=== PATIENT | female | born 1985 | race Two or more races ===

== ENCOUNTER → 2018-02-09 10:26 | Outpatient (CLI) | payer OTHER, SELFPAY ==
--- NOTE | 2018-02-09 10:33 | MM_ITS ---
MM Dig screening mamm BI w/CAD CAD Screening COMPARISON: None, this is baseline INDICATION: There is no personal or family history of breast cancer. Patient complains of lactating from each breast 3 years after breast feeding TECHNIQUE: Standard CC and MLO images were obtained. R2 CAD reviewed. FINDINGS: Moderate scattered fibroglandular densities are seen throughout both breasts and the findings are bilateral and symmetrical. There is no suspicious lesion and there are no suspicious microcalcifications. In particular there do not appear to be dilated ducts in the retroareolar region in either breast. If persists possibly follow-up ultrasound in each breast should be considered. IMPRESSION: Fibrofatty parenchyma with no suspicious lesion seen BI-RADS Category: 1 Negative RECOMMENDED FOLLOW-UP: 1YR - 1 YEAR FOLLOW-UP after the age of 40 (A letter has been sent to the patient regarding results of the study.)
== END ==
PROVIDERS: PCP Obstetrics & Gynecology; Visit Provider Obstetrics & Gynecology
DX: Z12.31 Encounter for screening mammogram for malignant neoplasm of breast (principal)
CPT/HCPCS: 77067

== ENCOUNTER → 2018-03-10 14:48 | Outpatient (CLI) | payer OTHER, SELFPAY ==
[2018-03-10 16:40] LABS: Free T4 (Free Thyroxine) 0.93 ng/dl (0.76-1.46); Thyroid Stimulating Hormone 0.58 uIU/ml (0.358-3.740)
[2018-03-12 10:18] LABS: Prolactin 14.3 ng/mL (4.8-23.3)
== END ==
DX: N64.3 Galactorrhea not associated with childbirth (principal)
CPT/HCPCS: 36415; 84146; 84439; 84443

== ENCOUNTER → 2019-03-21 08:33 | Outpatient (CLI) | payer OTHER, SELFPAY ==
[2019-03-22 14:32] LABS: Prolactin 10.3 ng/mL (4.8-23.3); Vitamin D 25 Hydroxy 48.2 ng/mL (30.0-100.0)
== END ==
PROVIDERS: Visit Provider Obstetrics & Gynecology
DX: E22.1 Hyperprolactinemia (principal); E55.9 Vitamin D deficiency, unspecified
CPT/HCPCS: 36415; 82652; 84146

== ENCOUNTER → 2022-02-04 13:09 | Outpatient (CLI) | payer OTHER, SELFPAY | PROVIDERS: Visit Provider Internal Medicine | DX: Z20.822 Contact with and (suspected) exposure to COVID-19 (principal) | CPT/HCPCS: C9803; U0003; U0005 ==

== ENCOUNTER → 2022-02-12 08:16 | Outpatient (CLI) | payer OTHER, SELFPAY ==
[2022-02-12 08:19] LABS: Coronavirus 19, PCR Not Detected (NotDetected); Influenza A, PCR Not Detected (NotDetected); Influenza B, PCR Not Detected (NotDetected)
== END ==
PROVIDERS: Visit Provider Internal Medicine
DX: Z11.52 Encounter for screening for COVID-19 (principal)
CPT/HCPCS: C9803; U0003; U0005

== ENCOUNTER → 2022-05-19 09:51 | Outpatient (CLI) | payer OTHER, SELFPAY ==
[2022-05-19 09:56] LABS: Microscopic, Urine URINE MICROSCOPIC (MICROSCOPIC)
[2022-05-19 10:11] LABS: Appearance,Urine CLEAR (Clear); Basophils # 0.1 K/mm3 (0-0.2); Basophils % 1.6 % (0.1-2.0); Bilirubin,Urine Negative (Negative); Blood, Urine 1+ (Negative); Color,Urine YELLOW (Yellow); Eosinophils # 0.2 K/mm3 (0.0-0.4); Glucose,Urine (UA) Negative (Negative); Hematocrit 41.8 % (37.0-47.0); Hemoglobin 13.4 g/dL (12.2-16.2); Ketones,Urine Negative (Negative); Leukocyte Esterase,Urine Negative (Negative); Lymphocytes # 1.6 K/mm3 (0.7-4.5); Lymphocytes % 20.9 % (10-50); Mean Corpuscular Hemoglobin 28.6 pg (27.0-31.2); Mean Corpuscular Volume 89.2 fl (81-99); Mean Platelet Volume 11.8 fl (7.4-10.4); Monocytes # 0.3 K/mm3 (0.1-1.0); Monocytes % 3.9 % (1.7-9.3); Neutrophils # 5.6 K/mm3 (1.8-7.8); Neutrophils % 71.6 % (37.0-80.0); Nitrate,Urine Negative (Negative); PH,Urine 5.5 (5.0-8.5); Platelet Count 187 K/mm3 (142-424); Protein,Urine Negative (Negative); Red Blood Count 4.68 M/mm3 (4.20-5.40); Red Cell Distribution Width 14.3 % (11.5-17.5); Specific Gravity, Urine >= 1.030 (1.005-1.030); Urobilinogen,Urine 0.2 EU/dl (0.2); White Blood Count 7.8 K/mm3 (4.8-10.8)
[2022-05-19 10:28] LABS: WBC,Urine Occasional #/hpf (0-3)
[2022-05-19 10:29] LABS: Bacteria,Urine 2+ /lpf
[2022-05-19 10:35] LABS: Chloride 108 mmol/L (98-107); Sodium 138 mmol/L (136-145)
[2022-05-19 10:38] LABS: Alanine Aminotransferase 28 U/L (12-78); Aspartate Amino Transferase 29 U/L (14-36); Blood Urea Nitrogen 11 mg/dl (7-17); Estimated Glomerular Filt Rate 112 ml/min (>60); GFR (African American) 136 ML/MIN (>60)
[2022-05-19 10:39] LABS: Albumin/Globulin Ratio 1.6 (1.1-1.8); Alkaline Phosphatase 80 U/L (38-126); Bilirubin,Total 0.3 mg/dl (0.2-1.3); Calcium 9.2 mg/dl (8.4-10.2); Carbon Dioxide 22 mmol/L (22.0-30.0); Globulin 2.5 g/dL (1.3-3.2); Glucose 147 mg/dl (74-100); Total Protein,Serum 6.5 g/dl (6.3-8.2)
== END ==
PROVIDERS: Visit Provider Obstetrics & Gynecology
DX: Z01.818 Encounter for other preprocedural examination (principal)
CPT/HCPCS: 36415; 80053; 81001; 85025; 87086

== ENCOUNTER → 2023-07-30 08:28 | Outpatient (CLI) | payer OTHER, SELFPAY ==
[2023-07-30 09:03] LABS: Basophils % 0.5 % (0.1-2.0); Eosinophils # 0.2 K/mm3 (0.0-0.4); Hematocrit 42.9 % (37.0-47.0); Hemoglobin 13.7 g/dL (12.2-16.2); Lymphocytes # 1.8 K/mm3 (0.7-4.5); Mean Corpuscular HGB Conc 31.9 g/dL (31.8-35.4); Mean Corpuscular Hemoglobin 27.6 pg (27.0-31.2); Mean Corpuscular Volume 86.5 fl (81-99); Mean Platelet Volume 12.2 fl (7.4-10.4); Monocytes # 0.3 K/mm3 (0.1-1.0); Monocytes % 3.8 % (1.7-9.3); Neutrophils # 6.6 K/mm3 (1.8-7.8); Neutrophils % 73.7 % (37.0-80.0); Platelet Count 218 K/mm3 (142-424); Red Blood Count 4.96 M/mm3 (4.20-5.40); Red Cell Distribution Width 13.8 % (11.5-17.5); White Blood Count 8.9 K/mm3 (4.8-10.8)
[2023-07-30 09:21] LABS: Alanine Aminotransferase 21 U/L (12-78); Alkaline Phosphatase 76 U/L (38-126); Anion Gap 12.1 mEq/L (5-15); Aspartate Amino Transferase 20 U/L (14-36); Bilirubin,Indirect 0.2 mg/dL (0.0-0.9); Bilirubin,Total 0.2 mg/dl (0.2-1.3); Bilirubin,Unconjugated 0.2 mg/dL (0.0-1.1); Blood Urea Nitrogen 9 mg/dl (7-17); Calcium 9.2 mg/dl (8.4-10.2); Carbon Dioxide 24 mmol/L (22.0-30.0); Chloride 108 mmol/L (98-107); Chol/HDL Ratio 2.9 (1-3.5); Cholesterol 118 mg/dl (140-200); Estimated Glomerular Filt Rate 80 ml/min (>60); GFR (African American) 97 ML/MIN (>60); Glucose 89 mg/dl (74-100); HDL Cholesterol 41 mg/dl (40-60); Potassium 4.1 mmoL/L (3.5-5.1); Sodium 140 mmol/L (136-145); Total Protein,Serum 6.5 g/dl (6.3-8.2); Triglycerides 46 mg/dl (30-150); VLDL Cholesterol 9 mg/dL (0-40)
[2023-07-30 09:30] LABS: Hemoglobin A1C 5.6 % (4.0-6.0)
[2023-07-30 09:32] LABS: Direct LDL Cholesterol 70.19 mg/dL (100-129)
[2023-07-30 09:40] LABS: Free T4 (Free Thyroxine) 0.97 ng/dl (0.78-2.19)
[2023-07-30 09:55] LABS: Thyroid Stimulating Hormone 0.52 uIU/mL (0.465-4.68)
== END ==
PROVIDERS: PCP Internal Medicine; Visit Provider Internal Medicine
DX: R53.83 Other fatigue (principal); R00.2 Palpitations; R00.0 Tachycardia, unspecified; I10 Essential (primary) hypertension; L83 Acanthosis nigricans
CPT/HCPCS: 36415; 80048; 80061; 80076; 83036; 83735; 84439; 84443; 85025

== ENCOUNTER 2024-08-08 07:55 | Day surgery (SDC) | payer OTHER, SELFPAY ==
[2024-08-03 09:42] VITALS: BMI 29.7
[2024-08-08 08:30] VITALS: BP 114/58; PULSE 77; RESP 18; TEMP 36.4; O2SAT 97
[2024-08-08] MEDS: LACTATED RINGERS 1000ML 1,000 ML 25 ML IV (08:37)
--- NOTE | 2024-08-08 08:43 | EXP.ANES.CKL ---
[facility] Disclaimer: The information contained in this section may have been updated after the patient was seen, as this information can be updated by other users. Medical History Sinus tachycardia Surgical History History of laparoscopy History of tubal ligation History of section Family History Mother Thyroid cancer Colon cancer Hyperlipidemia Hypertension Father Hyperlipidemia Father Hypertension Social History Smoking Status: Never smoker alcohol intake: never substance use type: denies use current occupational status: employed Travel in the last 8 weeks: None [facility] Anesthesia Checklist Patient Identification Patient Identification: Verbal (Name & ) Structural Data Admitted From: Home Planned Operative Procedure/s: colonoscopy NPO Status Verified Time NPO: 00:00 Airway Assessment Mallampati Score:: Class II C-Spine Mobility Assessed: Yes TMJ Mobility Assessed: Yes Neurological Assessment Level of Consciousness: Awake, Alert and Appropriate Anesthesia Plan Anesthesia Risk discussed: Yes Anesthesia Plan: Verified ASA Class: II Anesthesia Type: MAC
[2024-08-08 08:48] LABS: Albumin Level 4.6 g/dl (3.5-5.0); Chloride 104 mmol/L (98-107); Potassium 3.6 mmoL/L (3.5-5.1); Sodium 138 mmol/L (136-145)
[2024-08-08 08:50] LABS: Alanine Aminotransferase 27 U/L (12-78); Anion Gap 10.6 mEq/L (5-15); Aspartate Amino Transferase 30 U/L (14-36); Blood Urea Nitrogen 7 mg/dl (7-17); Carbon Dioxide 27 mmol/L (22.0-30.0); Creatinine Clearance Estimated 147 mL/min (50-200); Estimated Glomerular Filt Rate 93 ml/min (>60); GFR (African American) 113 ML/MIN (>60)
[2024-08-08 08:51] LABS: Albumin/Globulin Ratio 1.5 (1.1-1.8); Alkaline Phosphatase 84 U/L (38-126); Bilirubin,Total 0.7 mg/dl (0.2-1.3); Calcium 9.5 mg/dl (8.4-10.2); Chol/HDL Ratio 3.5 (1-3.5); Cholesterol 147 mg/dl (140-200); Glucose 96 mg/dl (74-100); HDL Cholesterol 42 mg/dl (40-60); Total Protein,Serum 7.6 g/dl (6.3-8.2); Triglycerides 109 mg/dl (30-150); VLDL Cholesterol 22 mg/dL (0-40)
[2024-08-08 08:53] LABS: Basophils % 0.4 % (0.1-2.0); Eosinophils # 0.2 K/mm3 (0.0-0.4); Eosinophils % 2.9 % (0.1-12.0); Hematocrit 43.5 % (37.0-47.0); Hemoglobin 14.1 g/dL (12.2-16.2); Lymphocytes # 1.7 K/mm3 (0.7-4.5); Lymphocytes % 22.7 % (10-50); Mean Corpuscular HGB Conc 32.3 g/dL (31.8-35.4); Mean Corpuscular Volume 89.8 fl (81-99); Mean Platelet Volume 10.8 fl (7.4-10.4); Monocytes # 0.4 K/mm3 (0.1-1.0); Monocytes % 4.7 % (1.7-9.3); Neutrophils # 5.2 K/mm3 (1.8-7.8); Neutrophils % 69.3 % (37.0-80.0); Platelet Count 209 K/mm3 (142-424); Red Blood Count 4.84 M/mm3 (4.20-5.40); Red Cell Distribution Width 13.5 % (11.5-17.5); White Blood Count 7.6 K/mm3 (4.8-10.8)
[2024-08-08 09:01] LABS: HCG Qualitative, Serum Negative (Negative)
[2024-08-08 09:02] LABS: Direct LDL Cholesterol 70.92 mg/dL (100-129)
--- NOTE | 2024-08-08 09:10 | EXP.HP ---
History of Present Illness *Admission Date: 08/08/24 *Reason for visit:: Screening *History of present illness: Mrs. Box is a 38-year-old female who is here for surveillance/high risk [place] colonoscopy. Her mother had colon cancer at the age of 50 with metastatic disease and her maternal uncle had colon cancer in his mid 50s. The patient did have a colonoscopy 7 years ago and had polyps.. The examination is deemed medically necessary for colonoscopy. The patient has been seen, interviewed and examined prior to the procedure by both myself and the anesthesia provider. [facility] Disclaimer: The information contained in this section may have been updated after the patient was seen, as this information can be updated by other users. Medical History (Updated 08/08/24 @ 09:16 by Jasper Gibson II, MD) Sinus tachycardia Surgical History History of laparoscopy History of tubal ligation History of section Family History Mother Thyroid cancer Colon cancer Hyperlipidemia Hypertension Father Hyperlipidemia Father Hypertension Social History Smoking Status: Never smoker alcohol intake: never substance use type: denies use current occupational status: employed Travel in the last 8 weeks: None Review of Systems Review of Systems Review of systems (narrative): Negative *Cardiovascular Comments: Negative *Gastrointestinal Comments: Negative *Genitourinary Comments: Negative *Musculoskeletal Comments: Negative *Neurologic Comments: Negative Meds Home Medications and Allergies Home Medications ?Medication ?Instructions ?Recorded ?Confirmed ?Type bisoprolol fumarate 10 mg tablet 10 mg PO DAILY #90 tabs 09/22/23 08/08/24 Rx New Prescriptions to Start Prescriptions: Allergies Allergy/AdvReac Type Severity Reaction Status Date / Time hydromorphone [From DILAUDID] Allergy Unknown NA-NAUSEA Verified 08/08/24 08:28 morphine [MORPHINE] Allergy Unknown NA-NAUSEA/V Verified 08/08/24 08:28 OMITING Exam Data for Last 24 hours Vital signs and Labs for Last 24 Hours: Temp Pulse Resp BP Pulse Ox O2 Del Method 97.5 F L 77 18 114/58 L 97 Room Air 08/08/24 08:30 08/08/24 08:30 08/08/24 08:30 08/08/24 08:30 08/08/24 08:30 08/08/24 08:30 Laboratory Results - last 24 hr 08/08/24 08:30: WBC 7.6, RBC 4.84, Hgb 14.1, Hct 43.5, MCV 89.8, MCH 29.0, MCHC 32.3, RDW 13.5, Plt Count 209, MPV 10.8 H, Neut % (Auto) 69.3, Lymph % (Auto) 22.7, [place] % (Auto) 4.7, Eos % (Auto) 2.9, Baso % (Auto) 0.4, Neut # (Auto) 5.2, Lymph # (Auto) 1.7, [place] # (Auto) 0.4, Eos # (Auto) 0.2, Baso # (Auto) 0.0, Sodium 138, Potassium 3.6, Chloride 104, Carbon Dioxide 27, Anion Gap 10.6, BUN 7, Creatinine 0.70, Estimated Creat Clear 147, Estimated GFR 93, Est GFR ( Amer) 113, Glucose 96, Calcium 9.5, Total Bilirubin 0.7, AST 30, ALT 27, Alkaline Phosphatase 84, Total Protein 7.6, Albumin 4.6, Globulin 3.0, Albumin/Globulin Ratio 1.5, Triglycerides 109, Cholesterol 147, LDL Cholesterol Direct 70.92 L, VLDL Cholesterol 22, HDL Cholesterol 42, Cholesterol/HDL Ratio 3.5, Serum HCG, Qual Negative *Routine HEENT Exam Head: Present normocephalic Eye: Present EOMI and PERRL ENT: Present mucous membranes moist *Routine Neck Exam Neck: Present supple *Routine Respiratory Exam Respiratory: Present CTA bilaterally *Routine Cardiovascular Exam Cardiovascular: Present RRR *Routine Abdominal Exam Abdominal: Present soft and normoactive bowel sounds; Absent tenderness *Routine Rectal Exam Rectal:: deferred *Routine Genitalia Exam Genitalia:: deferred *Routine Extremities Exam Extremities: Absent cyanosis, clubbing or edema *Routine Skin Exam Skin: Present warm; Absent rash *Routine Neurological Exam Neurological: Present alert and oriented X3 Assessment and Plan *Assessment and plan (1) Personal history of colonic polyps: Status: Acute Category: Medical Code(s): Z86.010 - Personal history of colonic polyps (2) Family history of colon cancer: Status: Acute Category: Medical Code(s): Z80.0 - Family history of malignant neoplasm of digestive organs (3) Encounter for screening for colorectal cancer in high risk patient: Status: Acute Category: Medical Code(s): Z12.11 - Encounter for screening for malignant neoplasm of colon; Z12.12 - Encounter for screening for malignant neoplasm of rectum; Z91.89 - Other specified personal risk factors, not elsewhere classified Plan A/P: 1. Screening colonoscopy?strong family history is the preprocedural diagnosis. The patient will be anesthetized/sedated using MAC sedation. The patient has been seen and examined. Cardiac and lung assessment prior to the examination is stable. Proceed with planned colonoscopy
[2024-08-08 09:12] VITALS: O2SAT 97
[2024-08-08 09:24] LABS: Thyroid Stimulating Hormone 1.28 uIU/mL (0.465-4.68)
--- NOTE | 2024-08-08 09:33 | HMH.PROCNOTE ---
[facility] Procedure Note Date: 08/08/24 Time: 09:33 Procedure Note:: Colonoscopy Procedure Report: Colonoscopy Endoscopist: Jasper Gibson II, MD Referring physician: Zackary Pink M.D. Date of Procedure: August 08, 2024 Equipment: Olympus 190 variable stiffness pediatric colonoscope Sedation: MAC sedation Indication: Mrs. Box is a 38-year-old female who is here for high risk screening/surveillance colonoscopy due to strong family history. Her mother had metastatic colon cancer at the age of 50. Her maternal uncle also had metastatic colon cancer in his mid 50s. The patient did have a colonoscopy in 2017 or 2018 (Benigno Lambert MD) at which time a couple of benign polyps were removed. The patient reports no abdominal pain, weight loss, change in her bowel habits or rectal bleeding. Procedure: Prior to the procedure, a history and physical exam was performed, and patient's medications and allergies were reviewed. The risks, benefits and alternatives of the sedation and procedure were discussed with the patient. All questions were answered and informed consent was obtained. The patient was brought to the procedure room. Patient identification and proposed procedure were verified by the physician and the nurse. The patient was placed in a left lateral decubitus position and the scope was passed under direct vision. Throughout the procedure, the patient's blood pressure, pulse, and oxygen saturations were monitored continuously. The colonoscopy was accomplished without difficulty. The patient tolerated the procedure well. Findings: On digital rectal examination there was normal rectal tone. There were no external hemorrhoids. The colonoscope was introduced through the anal canal to the rectum and advanced to the cecum. The ileocecal valve and appendiceal orifice were identified. The scope was advanced a short distance into the ileum which appeared grossly normal. The scope was then withdrawn into the colon. The cecum, ascending, transverse, descending, sigmoid and rectum were grossly normal. There were no mucosal abnormalities identified. Upon retroflexion within the rectum there were grade 1-2 internal hemorrhoids.The preparation was excellent throughout with [place] Preparation Score of 9. The cecal time was 9 minutes. Impression: 1. Normal colonoscopy with intubation of the terminal ileum 2. Grade 1-2 internal hemorrhoids Plan: Based upon the patient's strong family history, I would recommend repeat surveillance colonoscopy again in 5 years. We begin screening colonoscopy 10 years younger than the youngest family member with colon cancer and continue surveillance every 5 years thereafter.
[2024-08-08 09:38] VITALS: BP 97/44; PULSE 77; RESP 16; TEMP 37.1; O2SAT 98
[2024-08-08 09:38] LABS: Hemoglobin A1C 5.4 % (4.0-6.0)
[2024-08-08 09:48] VITALS: BP 102/51; PULSE 76; RESP 16; O2SAT 96
[2024-08-08 09:58] VITALS: BP 128/69; PULSE 65; RESP 16; O2SAT 99
[2024-08-08 10:06] VITALS: BP 130/66; PULSE 66; RESP 16; O2SAT 99
== END 2024-08-08 10:08 | disposition home or self-care (01) ==
PROVIDERS: Nurse Practitioner Women's Health; Visit Provider Internal Medicine Gastroenterology
PROC: (CPT 45378; principal; 2024-08-08 09:30)
DX: Z12.11 Encounter for screening for malignant neoplasm of colon (principal); Z86.010 Personal history of colon polyps; Z80.0 Family history of malignant neoplasm of digestive organs; Z12.12 Encounter for screening for malignant neoplasm of rectum; Z91.89 Other specified personal risk factors, not elsewhere classified; K64.1 Second degree hemorrhoids
CPT/HCPCS: 45378; 80050; 80053; 80061; 83036; 84443; 84703; 85025; 99221; J7120

== ENCOUNTER 2024-09-15 09:00 | Outpatient (CLI) | payer OTHER, SELFPAY ==
--- NOTE | 2024-09-15 09:02 | XR_ITS ---
FINAL REPORT TECHNIQUE: Bone mineral density was calculated of the lumbar spine and hip. CLINICAL HISTORY: screening COMPARISON: None FINDINGS: Using L1-4, the bone mineral density of the spine is 1.080 g/cm2, corresponding to T-score of 0.3, within normal limits. Using the left hip, the bone mineral density of the total hip is 0.958 g/cm2, corresponding to a T-score of 0.1, within normal limits. Using the right hip, the bone mineral density of the femoral neck is 0.976 g/cm2, corresponding to a T-score of 1.1, within normal limits. FRAX not reported because all T-scores at or above-1.0. NOTE: T-score: Standard deviation compared with peak bone mass of young adult mean. *Following the recommendations of the International Society of Bone densitometry, classification of hip BMD is based on the lower of two T-scores; total hip or femoral neck. IMPRESSION: Normal bone mineral density of the lumbar spine and bilateral hips. Authenticated and ERN
== END 2024-09-15 23:59 | disposition home or self-care (01) ==
LOC: RAD 09:00
PROVIDERS: PCP Nurse Practitioner Women's Health; Visit Provider Nurse Practitioner Women's Health
DX: Z79.3 Long term (current) use of hormonal contraceptives (principal)
CPT/HCPCS: 77080

== ENCOUNTER 2024-12-12 14:02 | Outpatient (CLI) | payer OTHER, SELFPAY ==
--- NOTE | 2024-12-12 14:05 | MM_ITS ---
PROCEDURE INFORMATION: Exam: MG Bilateral Screening 3D Mammography Exam date and time: 12/12/2024 2:09 PM Age: 39 years old Clinical indication: Screening examination TECHNIQUE: Imaging protocol: Bilateral Screening tomosynthesis and 2D mammography including computer-aided detection (CAD) when performed. COMPARISON: MG SCBI MM Dig screening mamm BI w/CAD 02/09/2018 10:54 AM FINDINGS: MAMMOGRAPHY: Breast composition: There are scattered areas of fibroglandular density. Mass: No suspicious masses. Architectural distortion: None. Calcifications: No suspicious calcifications. Asymmetric density: None. Skin thickening: None. Axillary adenopathy: None. IMPRESSION: No mammographic evidence of malignancy. Annual screening is recommended unless otherwise clinically indicated. ASSESSMENT: BI-RADS Category 1: Negative.
== END 2024-12-12 23:59 | disposition home or self-care (01) ==
LOC: RAD 14:03
PROVIDERS: PCP Nurse Practitioner Women's Health; Visit Provider Nurse Practitioner Women's Health
DX: Z12.31 Encounter for screening mammogram for malignant neoplasm of breast (principal)
CPT/HCPCS: 77063; 77067

== ENCOUNTER → 2025-07-27 06:24 | Outpatient (CLI) | payer OTHER, SELFPAY | LOC: SL 06:24 | PROVIDERS: PCP Nurse Practitioner; Visit Provider Nurse Practitioner | DX: R06.83 Snoring (principal); R53.83 Other fatigue | CPT/HCPCS: 95806 ==